=== PATIENT | male | born 1990 | race Caucasian/White ===

== ENCOUNTER 2025-06-17 15:59 | Emergency (ER) | payer SELFPAY ==
[2025-06-17 17:38] LABS: #Basophils 0.05 10x3/uL (0.0-0.2); #Eosinophils 1.48 10x3/uL (0.0-0.5); #Monocytes 0.26 10x3/uL (0.0-1.1); #Neutrophils 6.23 10x3/uL (1.5-8.4); %Basophils 0.6 % (0.0-2.0); %Eosinophils 16.7 % (0.0-6.0); %Lymphocytes 9.1 % (18.0-47.0); %Monocytes 2.9 % (0.0-10.0); %Neutrophils 70.4 % (40.0-75.0); Hematocrit 30.0 % (38.8-50.0); Hemoglobin 9.4 g/dL (13.5-17.5); Mean Corpuscular Hemoglobin 26.3 pg (27.0-33.0); Mean Corpuscular Volume 84.0 fL (81.2-95.1); Platelet Count 467 10x3/uL (150-450); Red Blood Cell (RBC) Count 3.57 10x6/uL (4.32-5.72); White Blood Cell (WBC) Count 8.86 10x3/uL (3.5-10.5)
[2025-06-17 17:43] LABS: Anion Gap 16 mmol/L (10-20); BUN (Urea Nitrogen) 24 mg/dL (8.9-20.6); Calc. Creatinine Clearance 0 mL/min (70-130); Carbon Dioxide 24 mmol/L (22-29); Chloride 101 mmol/L (98-107); INR-International Normal Ratio 1.1; PTT 26.9 sec (22.0-33.0); Potassium 3.6 mmol/L (3.5-5.1); Prothrombin Time 12.2 sec (9.5-12.1); Sodium 137 mmol/L (136-145)
[2025-06-17 17:44] LABS: ALT (SGPT) 59 U/L (Less than 45); AST (SGOT) 47 U/L (11-34); Albumin 3.2 g/dL (3.1-4.5); Alkaline Phosphatase 76 U/L (40-110); Bilirubin, Total 0.6 mg/dL (0.3-1.2); Calcium 9.4 mg/dL (7.8-10.44); Globulin 4.4 g/dL (2.4-3.5); Glucose 160 mg/dL (70-105)
== END 2025-06-17 19:20 | disposition home or self-care (01) ==
LOC: CSHERS 15:59
DX: R21 Rash and other nonspecific skin eruption (principal); D64.9 Anemia, unspecified
CPT/HCPCS: 36415; 80053; 85025; 85610; 85730; 86850; 86900; 86901; 99283

== ENCOUNTER 2025-07-19 15:36 | Emergency (ER) | payer SELFPAY ==
[~2025-07-19 15:36] MED LIST: Iopamidol-370 76% 500 ML MDV (1 ML CHARGE) ONE
[2025-07-19 16:42] LABS: #Basophils 0.05 10x3/uL (0.0-0.2); #Eosinophils 1.01 10x3/uL (0.0-0.5); #Monocytes 0.35 10x3/uL (0.0-1.1); #Neutrophils 4.80 10x3/uL (1.5-8.4); %Basophils 0.7 % (0.0-2.0); %Eosinophils 13.9 % (0.0-6.0); %Lymphocytes 14.6 % (18.0-47.0); %Monocytes 4.8 % (0.0-10.0); %Neutrophils 65.9 % (40.0-75.0); Hematocrit 19.1 % (38.8-50.0); Hemoglobin 6.0 g/dL (13.5-17.5); Mean Corpuscular Hemoglobin 25.2 pg (27.0-33.0); Mean Corpuscular Volume 80.3 fL (81.2-95.1); Platelet Count 507 10x3/uL (150-450); Red Blood Cell (RBC) Count 2.38 10x6/uL (4.32-5.72); White Blood Cell (WBC) Count 7.28 10x3/uL (3.5-10.5)
[2025-07-19 16:59] LABS: ALT (SGPT) 22 U/L (Less than 45); AST (SGOT) 23 U/L (11-34); Albumin 3.1 g/dL (3.1-4.5); Alkaline Phosphatase 67 U/L (40-110); Anion Gap 15 mmol/L (10-20); BUN (Urea Nitrogen) 26 mg/dL (8.9-20.6); Bilirubin, Total 0.6 mg/dL (0.3-1.2); CK (CPK) 56 U/L (30-200); Calc. Creatinine Clearance 0 mL/min (70-130); Calcium 9.3 mg/dL (7.8-10.44); Carbon Dioxide 25 mmol/L (22-29); Chloride 101 mmol/L (98-107); Globulin 4.1 g/dL (2.4-3.5); Glucose 124 mg/dL (70-105); Lipase 26 U/L (8-78); Potassium 4.0 mmol/L (3.5-5.1); Sodium 137 mmol/L (136-145)
[2025-07-19 17:01] LABS: Troponin I 0.013 ng/mL (< 0.028)
[2025-07-19 17:24] LABS: HIV (1/2) Antibody/Antigen Non-Reactive (NonReactive); HIV 1/2 INDEX 0.37 S/CO (<1.00); Thyroid Stimulating Hormone 1.7309 uIU/mL (0.35-4.94)
[2025-07-19 18:42] LABS: Cocaine Metabolite Screen Negative (Negative); THC/Cannabinoid Screen Negative (Negative); Tricyclic Screen Negative (Negative)
[2025-07-19 19:17] LABS: Glucose, Urine (Dipstick) Normal (Negative); Leukocyte Negative (Negative); Protein, Urine (Dipstick) 100 mg/dl (Neg-Trace); Specific Gravity, Urine 1.015 (1.005-1.030)
[2025-07-19 19:35] LABS: Bacteria/HPF None Seen HPF (None Seen); CAUTI Indications for Culture Alt mental st,lethar; Urine Culture Reflex No No; WBC/HPF 0-3 HPF (0-3)
[2025-07-19] MEDS ORDERED: Acetaminophen 325 MG TAB ONE (20:10)
[2025-07-19] MEDS ORDERED: LevoFLOXacin 750 mg/D5W 150 ml Premix Bag ONE (20:45)
== END 2025-07-19 22:58 | disposition short-term general hospital (02) ==
LOC: CSHERS 15:36
DX: D64.9 Anemia, unspecified (principal); J18.9 Pneumonia, unspecified organism; R63.4 Abnormal weight loss
CPT/HCPCS: 36415; 36430; 71275; 74177; 80053; 80306; 81001; 82274; 82550; 83605; 83690; 84443; 84484; 85025; 86850; 86900; 86901; 87040; 87389; 93005; 94760; 96374; J1956; P9016; Q9967